=== PATIENT | male | born 1965 | race Caucasian/White ===

== ENCOUNTER 2021-10-03 19:36 | Emergency (ER) | payer MEDICAID ==
[~2021-10-03] VITALS: Ht 175.3 cm; Wt 95.3 kg
[2021-10-03 20:10] VITALS: BP_SYST 104
--- NOTE | 2021-10-03 20:17 | NUR ---
Patient triaged and placed in waiting room. VSS and patient appears in no acute distress at this time. Accompanied by SELF, awaiting available bed, and MD notified of need for MSE.
--- NOTE | 2021-10-03 22:00 | NUR ---
Patient resting quietly in lobby. No acute distress noted. VSS.
[2021-10-03 23:00] LABS: BASOPHILS # (AUTO) 0.2 K/uL (0.0-0.2); BASOPHILS % (AUTO) 2.5 % (0.0-2.0); EOSINOPHILS # (AUTO) 0.4 K/uL (0.0-0.4); EOSINOPHILS % (AUTO) 5.6 % (0.0-4.0); HEMATOCRIT 43.7 % (36-54); HEMOGLOBIN 14.9 g/dL (14.0-18.0); LYMPHOCYTES # (AUTO) 1.9 K/uL (1.0-5.5); MEAN CORPUSCULAR HEMOGLOBIN 32 pg (27-31); MEAN CORPUSCULAR HGB CONC 34 % (32-36); MEAN CORPUSCULAR VOLUME 93 fL (79.0-98.0); MONOCYTES # (AUTO) 0.5 K/uL (0.0-1.0); MONOCYTES % (AUTO) 7.6 % (1.7-9.3); NEUTROPHILS # (AUTO) 3.4 K/uL (1.8-7.7); NEUTROPHILS % (AUTO) 54.3 % (40.0-70.0); PLATELET COUNT (AUTO) 194 K/uL (130-430); RED BLOOD CELL COUNT(AUTO) 4.69 MIL/uL (4.2-6.2); RED CELL DISTRIBUTION WIDTH 13.8 % (9.0-15.0); WHITE BLOOD COUNT (AUTO) 6.3 K/uL (4.8-10.8)
[2021-10-03 23:16] LABS: CALCIUM 9.4 mg/dL (8.4-11.0); CREATININE 1.12 mg/dL (0.55-1.30); POTASSIUM 4.2 mmol/L (3.5-5.1)
[2021-10-03 23:21] LABS: ALBUMIN 3.9 g/dL (3.4-4.8); TOTAL BILIRUBIN 0.2 mg/dL (0.0-1.0)
--- NOTE | 2021-10-04 00:16 | NUR ---
Patient resting quietly in lobby. No acute distress noted. VSS.
--- NOTE | 2021-10-04 00:32 | NUR ---
Patient to ER bed 7 to gown for evaluation. Side rails up. Report given to ANAND MOMIN.
--- NOTE | 2021-10-04 00:35 | NUR ---
Patient stated, "I came in because I had low blood pressure." Patient's current BP is 131/88, HR 84, O2 Sat 100%, Temp 98.1 Degrees F, and RR 16. Patient is A/Ox4, lying in bed resting comfortably, no s/s of distress. Patient stated pain is 0/10. Patient chest rise and fall symmetrical. Bed in low and locked position, bed rails up.
--- NOTE | 2021-10-04 01:04 | NUR ---
Patient is A/Ox4, lying in bed resting comfortably, no s/s of distress. Patient stated pain is 0/10. Patient chest rise and fall symmetrical. Bed in low and locked position, bed rails up.
--- NOTE | 2021-10-04 03:06 | NUR ---
DR. AGUILAR CHAIRSIDE FOR MSE
[2021-10-04 03:31] VITALS: BP_SYST 140
== END 2021-10-04 03:31 | disposition home or self-care (01) ==
LOC: SED 19:36
DX: I95.9 Hypotension, unspecified (principal); I10 Essential (primary) hypertension
CPT/HCPCS: 36415; 80053; 84484; 85025; 99283